=== PATIENT | female | born 1955 | race African-American/Black ===

== ENCOUNTER 2016-07-08 11:54 | Emergency (ER) | payer MEDICAID ==
[~2016-07-08] VITALS: Ht 175.3 cm; Wt 68.0 kg
[~2016-07-08 11:54] MED LIST: AMLO2.5T45 PO; ATOR40TA70 PO; PROT40 PO; TRAM50TA3 PO
[2016-07-08] MEDS ORDERED: METHYLPREDNISOLONE SOD SUCC 125 MG/2 ML VIAL IV STA (13:32)
[2016-07-08] MEDS ORDERED: IPRATROPIUM/ALBUTEROL 0.5-3(2.5)MG/3ML NEB HHN ONE (13:45)
[2016-07-08 13:53] LABS: BASOPHILS % 0.6 % (0.0-2.0); EOSINOPHILS % 0.8 % (0.0-5.0); HEMATOCRIT. 40.6 % (36.0-48.0); HEMOGLOBIN. 13.5 g/dL (12.0-16.0); LYMPHOCYTES % 20.6 % (20.0-50.0); MEAN CORPUSCULAR HEMOGLOBIN 30.4 pg (28.0-32.0); MEAN CORPUSCULAR HGB CONC 33.1 g/dL (31.0-37.0); MEAN CORPUSCULAR VOLUME 91.9 fL (81.0-99.0); MEAN PLATELET VOLUME 7.5 fl (7.4-10.4); MONOCYTES % 7.2 % (2.0-8.0); NEUTROPHILS % 70.8 % (40.0-76.0); PLATELET 221 x1000/uL (130-400); RED BLOOD CELL COUNT 4.42 mill/uL (4.2-5.4); RED CELL DISTRIBUTION WIDTH 14.8 % (11.6-14.6)
[2016-07-08 14:01] LABS: PARTIAL THROMBOPLASTIN TIME 25.2 sec (24.0-34.0); PROTHROMBIN TIME 10.5 sec
[2016-07-08 14:07] LABS: ALANINE AMINOTRANSFERASE 42 IU/L (13-61); ALBUMIN 3.8 g/dL (3.4-5.0); ANION GAP 11; CALCIUM 9.1 mg/dL (8.5-10.1); CARBON DIOXIDE 28 mEq/L (21-32); CHLORIDE 105 mEq/L (98-107); INDEX HEMOLYSI 1 (1-3); INDEX ICTERIC 1 (1-4); INDEX LIPEMIC 1 (1-3); NT PRO B-TYPE NATRIURETIC PEP 66 pg/mL (5-125); TROPONIN I < 0.02 ng/mL (0.00-0.04); UREA NITROGEN BLOOD 17 mg/dL (7-21); eGFR > 60 mL/min (>60)
[2016-07-08 15:54] VITALS: BP 130/75
== END 2016-07-08 16:59 | disposition home or self-care (01) ==
LOC: ER 13:28
DX: J20.9 Acute bronchitis, unspecified (principal); K21.9 Gastro-esophageal reflux disease without esophagitis; E78.00 Pure hypercholesterolemia, unspecified; I10 Essential (primary) hypertension; F17.210 Nicotine dependence, cigarettes, uncomplicated; Z79.1 Long term (current) use of non-steroidal anti-inflammatories (NSAID); Z79.899 Other long term (current) drug therapy
CPT/HCPCS: 36415; 71010; 80053; 83880; 84484; 85025; 85610; 85730; 93005; 94640; 96374; 99285; 99406; J2930; Z7610; J7620

== ENCOUNTER 2017-12-19 12:50 | Inpatient (IN) | payer MEDICAID ==
[~2017-12-19] VITALS: Ht 165.1 cm; Wt 75.3 kg
[2017-12-19] MEDS ORDERED: ASPIRIN 81MG TABLET PO ONE (14:30)
[2017-12-19] MEDS ORDERED: NITROGLYCERIN 0.4MG TABLET SL SL PRN (14:30)
[2017-12-19 15:36] LABS: BASOPHILS % 0.6 % (0.0-2.0); HEMATOCRIT. 41.2 % (36.0-48.0); HEMOGLOBIN. 13.5 g/dL (12.0-16.0); LYMPHOCYTES % 40.2 % (20.0-50.0); MEAN CORPUSCULAR VOLUME 91.2 fL (81.0-99.0); MEAN PLATELET VOLUME 8.8 fl (7.4-10.4); MONOCYTES % 10.1 % (2.0-8.0); NEUTROPHILS % 48.1 % (40.0-76.0); PLATELET 271 x1000/uL (130-400); RED BLOOD CELL COUNT 4.51 mill/uL (4.2-5.4); RED CELL DISTRIBUTION WIDTH 14.6 % (11.6-14.6)
[2017-12-19 15:41] LABS: CHLORIDE 106 mEq/L (98-107)
[2017-12-19 15:45] LABS: D-DIMER 0.43 mg/L FEU (<0.50); PARTIAL THROMBOPLASTIN TIME 27.8 sec (23.4-31.0); PROTHROMBIN TIME 10.2 sec (9.1-11.1)
[2017-12-19] MEDS ORDERED: MAGNESIUM/ALUMINUM HYDROXIDE/SIMETHICONE 30ML UDC PO PRN (18:30)
[2017-12-19] MEDS ORDERED: DOCUSATE SODIUM 100MG CAPSULE PO PRN (18:30)
[2017-12-19] MEDS ORDERED: CLONIDINE 0.1MG TABLET PO PRN (18:30)
[2017-12-19] MEDS ORDERED: IPRATROPIUM/ALBUTEROL 0.5-3(2.5)MG/3ML NEB INH PRN (18:30)
[2017-12-19] MEDS ORDERED: GUAIFENESIN 200MG/10ML SUGAR FREE UDC PO PRN (18:30)
[2017-12-19] MEDS ORDERED: ONDANSETRON HCL 4MG/2ML INJ IV PRN (18:30)
[2017-12-19] MEDS ORDERED: ACETAMINOPHEN 325MG TABLET PO PRN (18:30)
[2017-12-19] MEDS: HYDROCODONE/ACETAMINOPHEN 5/325MG TABLET PO PRN (20:16)
[2017-12-19 22:18] LABS: CHLORIDE 106 mEq/L (98-107)
[2017-12-19 22:27] LABS: CREATINE KINASE 85 IU/L (26-192)
[2017-12-19 22:29] LABS: CREATINE KINASE MB FRACTION < 1.0 ng/mL (0.5-3.6)
[2017-12-19 22:40] VITALS: BP 141/74
[2017-12-19 22:54] VITALS: BP 141/74
[2017-12-20 04:00] VITALS: BP 117/59
[2017-12-20 06:18] LABS: BASOPHILS % 0.5 % (0.0-2.0); EOSINOPHILS % 1.6 % (0.0-5.0); HEMATOCRIT. 38.8 % (36.0-48.0); HEMOGLOBIN. 12.7 g/dL (12.0-16.0); LYMPHOCYTES % 46.2 % (20.0-50.0); MEAN CORPUSCULAR VOLUME 91.7 fL (81.0-99.0); MEAN PLATELET VOLUME 8.7 fl (7.4-10.4); NEUTROPHILS % 43.7 % (40.0-76.0); PLATELET 275 x1000/uL (130-400); RED BLOOD CELL COUNT 4.23 mill/uL (4.2-5.4); RED CELL DISTRIBUTION WIDTH 14.4 % (11.6-14.6)
[2017-12-20 06:40] LABS: LDL CHOLESTEROL 72 mg/dL (5-100)
[2017-12-20 06:42] LABS: CREATINE KINASE 81 IU/L (26-192); HDL CHOLESTEROL 41 mg/dL (40-59)
[2017-12-20 06:44] LABS: CREATINE KINASE MB FRACTION < 1.0 ng/mL (0.5-3.6)
[2017-12-20 08:00] VITALS: BP 111/57
[2017-12-20] MEDS: ASPIRIN 81MG EC TABLET PO SCH (08:27)
[2017-12-20] MEDS: ENOXAPARIN 40MG/0.4ML SYR SUBCUT SCH (08:28)
[2017-12-20 12:00] VITALS: BP 110/66
[2017-12-20] MEDS ORDERED: IPRATROPIUM/ALBUTEROL 0.5-3(2.5)MG/3ML NEB HHN PRN (14:00)
[2017-12-20] MEDS: PANTOPRAZOLE 40MG DR TABLET PO SCH (15:34)
[2017-12-20] MEDS: AMLODIPINE 2.5MG TABLET PO SCH (15:35)
[2017-12-20] MEDS: NICOTINE 7MG PATCH TD SCH (15:39)
[2017-12-20 15:42] VITALS: BP 112/61
[2017-12-20 19:59] VITALS: BP 119/53
[2017-12-20] MEDS: ATORVASTATIN CALCIUM 40MG TABLET PO SCH (20:58)
[2017-12-20 22:35] LABS: *AMPHETAMINES SCREEN URINE NEGATIVE (NEGATIVE); *BARBITURATES SCREEN URINE NEGATIVE (NEGATIVE); *BENZODIAZEPINES SCREEN URINE NEGATIVE (NEGATIVE); *COCAINE SCREEN URINE PRESUMTIVE POSITIVE (NEGATIVE); METHADONE URINE SCREEN NEGATIVE (NEGATIVE); OPIATES URINE SCREEN NEGATIVE (NEGATIVE)
[2017-12-20 22:36] LABS: CANNABINOID URINE SCREEN NEGATIVE (NEGATIVE); PHENCYCLIDINE URINE SCREEN NEGATIVE (NEGATIVE)
[2017-12-20 23:52] VITALS: BP 141/71
[2017-12-21 04:00] VITALS: BP 108/56
[2017-12-21 06:24] LABS: BASOPHILS % 0.3 % (0.0-2.0); EOSINOPHILS % 1.3 % (0.0-5.0); HEMATOCRIT. 41.8 % (36.0-48.0); HEMOGLOBIN. 13.9 g/dL (12.0-16.0); LYMPHOCYTES % 46.8 % (20.0-50.0); MEAN CORPUSCULAR HEMOGLOBIN 30.5 pg (28.0-32.0); MEAN CORPUSCULAR VOLUME 91.4 fL (81.0-99.0); MEAN PLATELET VOLUME 8.5 fl (7.4-10.4); NEUTROPHILS % 43.6 % (40.0-76.0); PLATELET 294 x1000/uL (130-400); RED BLOOD CELL COUNT 4.57 mill/uL (4.2-5.4); RED CELL DISTRIBUTION WIDTH 14.5 % (11.6-14.6)
[2017-12-21] MEDS: PANTOPRAZOLE 40MG DR TABLET PO SCH (06:38)
[2017-12-21 06:41] LABS: CHLORIDE 105 mEq/L (98-107)
[2017-12-21 06:49] LABS: PHOSPHORUS 4.7 mg/dL (2.5-4.9)
[2017-12-21 08:00] VITALS: BP 104/62
[2017-12-21] MEDS: ASPIRIN 81MG EC TABLET PO SCH (08:23)
[2017-12-21] MEDS: ENOXAPARIN 40MG/0.4ML SYR SUBCUT SCH (08:24)
[2017-12-21] MEDS: NICOTINE 7MG PATCH TD SCH (08:26)
[2017-12-21] MEDS: AMLODIPINE 2.5MG TABLET PO SCH (08:26)
[2017-12-21 10:17] LABS: T4 FREE 0.8 ng/dL (0.76-1.46)
[2017-12-21 12:00] VITALS: BP 115/75
[2017-12-21 16:00] VITALS: BP 112/74
[2017-12-21 17:07] LABS: CREATINE KINASE 72 IU/L (26-192)
[2017-12-21 17:08] LABS: CREATINE KINASE MB FRACTION < 1.0 ng/mL (0.5-3.6)
[2017-12-21 20:00] VITALS: BP 111/66
[2017-12-21] MEDS: ATORVASTATIN CALCIUM 40MG TABLET PO SCH (20:23)
[2017-12-21] MEDS: HYDROCODONE/ACETAMINOPHEN 5/325MG TABLET PO PRN (20:24)
[2017-12-22] VITALS: BP 126/54
[2017-12-22 00:24] LABS: CREATINE KINASE 67 IU/L (26-192)
[2017-12-22 00:25] LABS: CREATINE KINASE MB FRACTION < 1.0 ng/mL (0.5-3.6)
[2017-12-22 04:00] VITALS: BP 108/61
[2017-12-22] MEDS: PANTOPRAZOLE 40MG DR TABLET PO SCH (06:25)
[2017-12-22 06:45] LABS: CREATINE KINASE 65 IU/L (26-192)
[2017-12-22 06:47] LABS: CREATINE KINASE MB FRACTION < 1.0 ng/mL (0.5-3.6)
[2017-12-22 08:00] VITALS: BP 115/55
[2017-12-22] MEDS: ENOXAPARIN 40MG/0.4ML SYR SUBCUT SCH (08:38)
[2017-12-22] MEDS: AMLODIPINE 2.5MG TABLET PO SCH (08:38)
[2017-12-22] MEDS: NICOTINE 7MG PATCH TD SCH (08:42)
[2017-12-22] MEDS ORDERED: ASPIRIN 81MG TABLET PO SCH (09:00)
[2017-12-22 12:00] VITALS: BP 103/60
== END 2017-12-22 14:40 | disposition left against medical advice (07) | DRG 203 ==
LOC: ER 12:50 → 6WST 17:16 → ENRESERV 21:09
PROVIDERS: ADMIT Internal Medicine; ATTEND Internal Medicine
DX: M94.0 Chondrocostal junction syndrome [Tietze] (principal); J84.10 Pulmonary fibrosis, unspecified; E78.5 Hyperlipidemia, unspecified; I10 Essential (primary) hypertension; K21.9 Gastro-esophageal reflux disease without esophagitis; E78.00 Pure hypercholesterolemia, unspecified; F17.200 Nicotine dependence, unspecified, uncomplicated; M79.89 Other specified soft tissue disorders; Z53.21 Procedure and treatment not carried out due to patient leaving prior to being seen by health care provider; Z71.6 Tobacco abuse counseling; Z79.899 Other long term (current) drug therapy
CPT/HCPCS: 36415; 71045; 80048; 80053; 80061; 80305; 82550; 82553; 83036; 83735; 83880; 84100; 84439; 84443; 84484; 85025; 85379; 85610; 85730; 93005; 93306; 93970; 99285; J1650; J7620

== ENCOUNTER 2018-04-11 10:19 | Emergency (ER) | payer MEDICAID ==
[~2018-04-11] VITALS: Ht 165.1 cm; Wt 73.0 kg
[2018-04-11] MEDS: KETOROLAC 60MG/2ML VIAL IM ONE ×2 (14:26→14:54)
[2018-04-11 14:54] VITALS: BP 133/69
== END 2018-04-11 14:56 | disposition home or self-care (01) ==
LOC: ER 10:32
DX: S13.4XXA Sprain of ligaments of cervical spine, initial encounter (principal); S80.01XA Contusion of right knee, initial encounter; S80.02XA Contusion of left knee, initial encounter; M54.9 Dorsalgia, unspecified; V49.49XA Driver injured in collision with other motor vehicles in traffic accident, initial encounter; Y93.89 Activity, other specified; Y92.410 Unspecified street and highway as the place of occurrence of the external cause; I10 Essential (primary) hypertension
CPT/HCPCS: 96372; 99283; J1885

== ENCOUNTER 2018-04-15 08:35 | Emergency (ER) | payer MEDICAID ==
[~2018-04-15] VITALS: Ht 165.1 cm; Wt 74.0 kg
[2018-04-15] MEDS ORDERED: IBUPROFEN 600MG TABLET PO STA (09:05)
[2018-04-15 10:47] LABS: CLARITY URINE CLOUDY (CLEAR); COLOR URINE YELLOW (YELLOW); KETONES URINE 2+ (NEGATIVE); LEUKOCYTE ESTERASE URINE NEGATIVE (NEGATIVE); NITRITE URINE NEGATIVE (NEGATIVE); OCCULT BLOOD URINE 2+ (NEGATIVE); PROTEIN URINE NEGATIVE (NEGATIVE); SPECIFIC GRAVITY URINE 1.028 (1.005-1.030); UROBILINOGEN URINE 0.2 E.U./dL (0.2-1.0)
[2018-04-15 11:39] LABS: BASOPHILS % 0.4 % (0.0-2.0); EOSINOPHILS % 1.1 % (0.0-5.0); HEMATOCRIT. 40.3 % (36.0-48.0); HEMOGLOBIN. 13.2 g/dL (12.0-16.0); LYMPHOCYTES % 16.1 % (20.0-50.0); MEAN CORPUSCULAR HEMOGLOBIN 29.6 pg (28.0-32.0); MEAN CORPUSCULAR VOLUME 90.7 fL (81.0-99.0); MEAN PLATELET VOLUME 8.2 fl (7.4-10.4); MONOCYTES % 9.4 % (2.0-8.0); PLATELET 246 x1000/uL (130-400); RED BLOOD CELL COUNT 4.44 mill/uL (4.2-5.4); RED CELL DISTRIBUTION WIDTH 14.4 % (11.6-14.6)
[2018-04-15 11:46] LABS: CHLORIDE 107 mEq/L (98-107)
[2018-04-15 11:48] LABS: INR 1.1
[2018-04-15 12:15] VITALS: BP 128/81
== END 2018-04-15 12:17 | disposition home or self-care (01) ==
LOC: ER 09:02
DX: R04.0 Epistaxis (principal); K52.9 Noninfective gastroenteritis and colitis, unspecified; F17.200 Nicotine dependence, unspecified, uncomplicated; K21.9 Gastro-esophageal reflux disease without esophagitis; E78.00 Pure hypercholesterolemia, unspecified; I10 Essential (primary) hypertension; Z98.890 Other specified postprocedural states
CPT/HCPCS: 36415; 74176; 99284; 99406

== ENCOUNTER 2018-04-16 01:57 | Emergency (ER) | payer MEDICAID ==
[~2018-04-16] VITALS: Ht 165.1 cm; Wt 74.0 kg
[2018-04-16 02:05] VITALS: BP 115/55
== END 2018-04-16 09:28 | disposition left against medical advice (07) ==
LOC: ER 01:57
DX: Z53.21 Procedure and treatment not carried out due to patient leaving prior to being seen by health care provider (principal)

== ENCOUNTER 2021-12-24 11:29 | Inpatient (IN) | payer MEDICARE, MEDICAID ==
[~2021-12-24] VITALS: Ht 167.6 cm; Wt 64.4 kg
[2021-12-24] MEDS ORDERED: MORPHINE SULFATE 4 MG/ML CPJ (NOT FOR IM USE) IV STA ×2 (13:23→18:20)
[2021-12-24] MEDS ORDERED: ONDANSETRON HCL 4MG/2ML INJ IV STA ×2 (13:23→18:20)
[2021-12-24] MEDS ORDERED: SODIUM CHLORIDE 0.9% 1,000 ML IV ONE (13:30)
[2021-12-24 14:00] LABS: BASOPHILS % 0.5 % (0.0-2.0); EOSINOPHILS % 1.7 % (0.0-5.0); HEMOGLOBIN. 13.6 g/dL (12.0-16.0); LYMPHOCYTES % 25.3 % (20.0-50.0); MEAN CORPUSCULAR HEMOGLOBIN 31.8 pg (28.0-32.0); MEAN CORPUSCULAR VOLUME 93.9 fL (81.0-99.0); MEAN PLATELET VOLUME 8.1 fl (7.4-10.4); MONOCYTES % 9.1 % (2.0-8.0); NEUTROPHILS % 63.4 % (40.0-76.0); PLATELET 288 x1000/uL (130-400); RED BLOOD CELL COUNT 4.26 mill/uL (4.2-5.4); RED CELL DISTRIBUTION WIDTH 13.9 % (11.6-14.6)
[2021-12-24] MEDS ORDERED: DIPHENHYDRAMINE 50MG/ML VIAL IV ONE (14:15)
[2021-12-24] MEDS ORDERED: ASPIRIN 81MG TABLET PO ONE (16:15)
[2021-12-24 16:41] LABS: CHLORIDE 108 mEq/L (98-107)
[2021-12-24] MEDS ORDERED: DIPHENHYDRAMINE 50MG/ML VIAL IV PRN (18:30)
[2021-12-24] MEDS ORDERED: IPRATROPIUM/ALBUTEROL 0.5-3(2.5)MG/3ML NEB HHN PRN (18:30)
[2021-12-24] MEDS ORDERED: ACETAMINOPHEN 325MG TABLET PO PRN (18:30)
[2021-12-24] MEDS ORDERED: ONDANSETRON HCL 4MG/2ML INJ IV PRN (18:30)
[2021-12-24] MEDS ORDERED: CLONIDINE 0.1MG TABLET PO PRN (18:30)
[2021-12-24] MEDS ORDERED: NALOXONE HCL 0.4MG/ML VIAL IV PRN (19:00)
[2021-12-24 19:01] LABS: PROTHROMBIN TIME 10.9 sec (9.6-11.0)
[2021-12-24] MEDS: MORPHINE SULFATE 2 MG/ML CPJ (NOT FOR IM USE) IV PRN (23:36)
[2021-12-24 23:37] VITALS: BP 135/84
[2021-12-25 04:00] VITALS: BP 135/76
[2021-12-25 07:58] VITALS: BP 129/75
[2021-12-25] MEDS: MORPHINE SULFATE 2 MG/ML CPJ (NOT FOR IM USE) IV PRN ×2 (08:03→18:05)
[2021-12-25 12:00] VITALS: BP 133/73
[2021-12-25 12:54] LABS: BASOPHILS % 0.3 % (0.0-2.0); EOSINOPHILS % 1.2 % (0.0-5.0); HEMATOCRIT. 41.7 % (36.0-48.0); LYMPHOCYTES % 22.6 % (20.0-50.0); MEAN CORPUSCULAR HEMOGLOBIN 31.5 pg (28.0-32.0); MEAN CORPUSCULAR VOLUME 93.5 fL (81.0-99.0); MEAN PLATELET VOLUME 8.8 fl (7.4-10.4); MONOCYTES % 9.6 % (2.0-8.0); NEUTROPHILS % 66.3 % (40.0-76.0); PLATELET 258 x1000/uL (130-400); RED BLOOD CELL COUNT 4.46 mill/uL (4.2-5.4); RED CELL DISTRIBUTION WIDTH 13.7 % (11.6-14.6)
[2021-12-25 13:15] LABS: CHLORIDE 104 mEq/L (98-107)
[2021-12-25] MEDS ORDERED: HYDROCODONE/ACETAMINOPHEN 5/325MG TABLET PO PRN (13:15)
[2021-12-25] MEDS: PANTOPRAZOLE 40MG DR TABLET PO SCH (13:58)
[2021-12-25] MEDS: NICOTINE 14MG PATCH TD SCH (13:59)
[2021-12-25] MEDS: LIDOCAINE 5% PATCH TOP SCH (13:59)
[2021-12-25 16:00] VITALS: BP 132/69
[2021-12-25 20:00] VITALS: BP 130/76
[2021-12-26] VITALS: BP 128/81
[2021-12-26 04:00] VITALS: BP 131/78
[2021-12-26 08:00] VITALS: BP 112/62
[2021-12-26] MEDS: MORPHINE SULFATE 2 MG/ML CPJ (NOT FOR IM USE) IV PRN ×2 (09:05→20:50)
[2021-12-26] MEDS: PANTOPRAZOLE 40MG DR TABLET PO SCH (09:06)
[2021-12-26] MEDS: NICOTINE 14MG PATCH TD SCH (09:06)
[2021-12-26] MEDS: LIDOCAINE 5% PATCH TOP SCH (09:06)
[2021-12-26 12:00] VITALS: BP 135/84
[2021-12-26 16:00] VITALS: BP 133/63
[2021-12-26 20:00] VITALS: BP 124/64
[2021-12-27] VITALS: BP 130/66
[2021-12-27 04:00] VITALS: BP 110/58
[2021-12-27 08:00] VITALS: BP 108/67
[2021-12-27] MEDS: NICOTINE 14MG PATCH TD SCH (08:38)
[2021-12-27] MEDS: LIDOCAINE 5% PATCH TOP SCH (08:41)
[2021-12-27] MEDS: PANTOPRAZOLE 40MG DR TABLET PO SCH (08:41)
[2021-12-27] MEDS: MORPHINE SULFATE 2 MG/ML CPJ (NOT FOR IM USE) IV PRN ×3 (08:42→22:30)
[2021-12-27 12:00] VITALS: BP 117/68
[2021-12-27] MEDS ORDERED: LIDO700A30 TOP (12:36)
[2021-12-27 16:00] VITALS: BP 130/67
[2021-12-27 20:00] VITALS: BP 112/74
[2021-12-28 04:00] VITALS: BP 119/69
[2021-12-28 08:26] VITALS: BP 126/47
[2021-12-28] MEDS: LIDOCAINE 5% PATCH TOP SCH (08:29)
[2021-12-28] MEDS: PANTOPRAZOLE 40MG DR TABLET PO SCH (08:29)
[2021-12-28] MEDS: NICOTINE 14MG PATCH TD SCH (08:29)
[2021-12-28 12:00] VITALS: BP 125/71
[2021-12-28 16:00] VITALS: BP 121/63
[2021-12-29] MEDS ORDERED: FAMOTIDINE 20MG TABLET PO SCH (09:00)
== END 2021-12-28 19:20 | disposition left against medical advice (07) | DRG 558 ==
LOC: ER 11:29 → 7WST 16:14 → EDBEDREQ 16:18 → EDBEDREQTM 16:18 → ENRESERV 21:56
PROVIDERS: ADMIT Internal Medicine; ATTEND Internal Medicine
DX: M75.32 Calcific tendinitis of left shoulder (principal); D25.9 Leiomyoma of uterus, unspecified; K21.9 Gastro-esophageal reflux disease without esophagitis; M48.02 Spinal stenosis, cervical region; I10 Essential (primary) hypertension; E78.00 Pure hypercholesterolemia, unspecified; E78.5 Hyperlipidemia, unspecified; Z87.891 Personal history of nicotine dependence; Z53.29 Procedure and treatment not carried out because of patient's decision for other reasons
CPT/HCPCS: 36415; 70551; 71045; 72141; 73030; 73221; 76830; 76856; 80053; 83880; 84484; 85025; 93005; 93306; 93970; 93971; 99285; J1200; J2270; J2405; J7030

== ENCOUNTER 2022-07-25 11:01 | Inpatient (IN) | payer MEDICARE, MEDICAID ==
[~2022-07-25] VITALS: Ht 162.6 cm; Wt 67.8 kg
[~2022-07-25 11:01] MED LIST changes: +LIDO700A30 TOP
[2022-07-25] MEDS ORDERED: ONDANSETRON HCL 4MG/2ML INJ IV STA (11:29)
[2022-07-25] MEDS ORDERED: MORPHINE SULFATE 4 MG/ML CPJ (NOT FOR IM USE) IV STA (11:29)
[2022-07-25] MEDS ORDERED: SODIUM CHLORIDE 0.9% 1,000 ML IV ONE (11:30)
[2022-07-25] MEDS ORDERED: MORPHINE SULFATE 4 MG/ML CPJ (NOT FOR IM USE) IV ONE (14:00)
[2022-07-25] MEDS ORDERED: CEFTRIAXONE 1GM PREMIX 50 ML IV ONE (14:00)
[2022-07-25 14:46] LABS: HEMATOCRIT. 40.4 % (36.0-48.0); HEMOGLOBIN. 13.2 g/dL (12.0-16.0); MEAN CORPUSCULAR HEMOGLOBIN 30.5 pg (28.0-32.0); MEAN CORPUSCULAR VOLUME 93.3 fL (81.0-99.0); MEAN PLATELET VOLUME 7.8 fl (7.4-10.4); PLATELET 291 x1000/uL (130-400); RED BLOOD CELL COUNT 4.33 mill/uL (4.2-5.4); RED CELL DISTRIBUTION WIDTH 14.6 % (11.6-14.6)
[2022-07-25 14:50] LABS: CHLORIDE 110 mEq/L (98-107)
[2022-07-25 15:24] LABS: CLARITY URINE TURBID (CLEAR); COLOR URINE YELLOW (YELLOW); KETONES URINE 1+ (NEGATIVE); LEUKOCYTE ESTERASE URINE 3+ (NEGATIVE); NITRITE URINE NEGATIVE (NEGATIVE); OCCULT BLOOD URINE 2+ (NEGATIVE); PH URINE 5.5 (4.5-8.0); PROTEIN URINE 1+ (NEGATIVE); SPECIFIC GRAVITY URINE 1.015 (1.005-1.030); UROBILINOGEN URINE 0.2 E.U./dL (0.2-1.0)
[2022-07-25 15:58] LABS: INR 1.1; PROTHROMBIN TIME 11.4 sec (9.6-11.0)
[2022-07-25 17:51] LABS: PLATELET ESTIMATE NORMAL
[2022-07-25 21:40] VITALS: BP 98/46
[2022-07-25 22:00] VITALS: BP 98/46
[2022-07-25 22:25] VITALS: BP 120/49
[2022-07-25] MEDS: MORPHINE SULFATE 2 MG/ML CPJ (NOT FOR IM USE) IV PRN (22:29)
[2022-07-25] MEDS ORDERED: ONDANSETRON HCL 4MG/2ML INJ IV PRN (22:45)
[2022-07-25] MEDS ORDERED: NALOXONE HCL 0.4MG/ML VIAL IV PRN (23:00)
[2022-07-25] MEDS ORDERED: OMEP40CA20 PO (23:11)
[2022-07-25] MEDS ORDERED: LEVOFLOXACIN 500MG PREMIX 100 ML IV NR (23:45)
[2022-07-26] VITALS: BP 102/42
[2022-07-26] MEDS: METRONIDAZOLE 500 MG PREMIX 100 ML IV SCH ×4 (00:18→22:55)
[2022-07-26] MEDS: DEXT 5%/0.45% NACL KCL 20MEQ/L 1,000 ML IV SCH ×2 (01:58→08:42)
[2022-07-26] MEDS: MORPHINE SULFATE 2 MG/ML CPJ (NOT FOR IM USE) IV PRN ×3 (02:28→17:57)
[2022-07-26 04:00] VITALS: BP 113/63
[2022-07-26 08:00] VITALS: BP 100/47
[2022-07-26] MEDS ORDERED: LEVOFLOXACIN 500MG PREMIX 100 ML IV SCH (10:45)
[2022-07-26] MEDS ORDERED: ACETAMINOPHEN 325MG TABLET PO PRN (10:45)
[2022-07-26] MEDS ORDERED: METRONIDAZOLE 500 MG PREMIX 100 ML IV SCH (10:45)
[2022-07-26] MEDS ORDERED: CLONIDINE 0.1MG TABLET PO PRN (10:45)
[2022-07-26] MEDS ORDERED: ONDANSETRON HCL 4MG/2ML INJ IV PRN (10:45)
[2022-07-26] MEDS: AMLODIPINE 2.5MG TABLET PO SCH (11:39)
[2022-07-26] MEDS: ENOXAPARIN 40MG/0.4ML SYR SUBCUT SCH (11:40)
[2022-07-26] MEDS: SODIUM CHLORIDE 0.9% 1,000 ML IV SCH (11:41)
[2022-07-26 12:00] VITALS: BP 99/46
[2022-07-26 16:00] VITALS: BP 124/51
[2022-07-26 16:25] LABS: HEMOGLOBIN. 12.7 g/dL (12.0-16.0); MEAN CORPUSCULAR VOLUME 92.9 fL (81.0-99.0); MEAN PLATELET VOLUME 9.2 fl (7.4-10.4); PLATELET 248 x1000/uL (130-400); RED BLOOD CELL COUNT 4.09 mill/uL (4.2-5.4); RED CELL DISTRIBUTION WIDTH 14.5 % (11.6-14.6)
[2022-07-26 16:37] LABS: CHLORIDE 105 mEq/L (98-107)
[2022-07-26 17:57] LABS: PLATELET ESTIMATE NORMAL
[2022-07-26] MEDS: PANTOPRAZOLE SODIUM 40 MG/VIAL IV SCH (17:58)
[2022-07-26 20:00] VITALS: BP 134/64
[2022-07-26] MEDS: LEVOFLOXACIN 250MG PREMIX 50 ML IV SCH (20:07)
[2022-07-27] VITALS: BP 121/66
[2022-07-27 04:00] VITALS: BP 135/66
[2022-07-27] MEDS: METRONIDAZOLE 500 MG PREMIX 100 ML IV SCH ×3 (06:15→22:00)
[2022-07-27 08:00] VITALS: BP 103/51
[2022-07-27 08:27] LABS: HEMATOCRIT. 38.7 % (36.0-48.0); HEMOGLOBIN. 12.7 g/dL (12.0-16.0); MEAN CORPUSCULAR HEMOGLOBIN 30.8 pg (28.0-32.0); MEAN PLATELET VOLUME 8.8 fl (7.4-10.4); PLATELET 256 x1000/uL (130-400); RED BLOOD CELL COUNT 4.11 mill/uL (4.2-5.4); RED CELL DISTRIBUTION WIDTH 14.4 % (11.6-14.6)
[2022-07-27 08:53] LABS: CHLORIDE 106 mEq/L (98-107)
[2022-07-27] MEDS: AMLODIPINE 2.5MG TABLET PO SCH (09:00)
[2022-07-27] MEDS: ATORVASTATIN CALCIUM 40MG TABLET PO SCH (09:00)
[2022-07-27] MEDS: PANTOPRAZOLE SODIUM 40 MG/VIAL IV SCH (09:00)
[2022-07-27] MEDS: ENOXAPARIN 40MG/0.4ML SYR SUBCUT SCH (09:01)
[2022-07-27] MEDS: SODIUM CHLORIDE 0.9% 1,000 ML IV SCH (09:02)
[2022-07-27] MEDS ORDERED: POTASSIUM CHLORIDE 20MEQ/PACKET PO NR (10:00)
[2022-07-27 10:58] LABS: PLATELET ESTIMATE NORMAL
[2022-07-27 12:00] VITALS: BP 113/55
[2022-07-27 16:00] VITALS: BP 124/61
[2022-07-27] MEDS: SODIUM CHL 0.9% + KCL 20MEQ/L 1,000 ML IV SCH (16:31)
[2022-07-27] MEDS: LEVOFLOXACIN 250MG PREMIX 50 ML IV SCH (18:19)
[2022-07-27] MEDS: MORPHINE SULFATE 2 MG/ML CPJ (NOT FOR IM USE) IV PRN ×2 (18:19→22:36)
[2022-07-27 20:00] VITALS: BP 119/58
[2022-07-28] VITALS (17 sets, daily range): BP systolic 104–135; BP diastolic 52–79
[2022-07-28] MEDS: SODIUM CHL 0.9% + KCL 20MEQ/L 1,000 ML IV SCH ×3 (03:30→23:40)
[2022-07-28] MEDS: MORPHINE SULFATE 2 MG/ML CPJ (NOT FOR IM USE) IV PRN ×2 (05:01→17:53)
[2022-07-28] MEDS: METRONIDAZOLE 500 MG PREMIX 100 ML IV SCH ×2 (05:02→14:30)
[2022-07-28] MEDS ORDERED: SODIUM BICARBONATE 4% (2.4MEQ) 5ML VIAL IV ONE (07:41)
[2022-07-28] MEDS ORDERED: LIDOCAINE HCL 1% 10 MG/ML 10ML VIAL ONE ×2 (07:41→07:42)
[2022-07-28] MEDS ORDERED: FENTANYL CITRATE/PF 50MCG/ML 2ML VIAL IV NR (07:41)
[2022-07-28] MEDS ORDERED: FENTANYL CITRATE/PF 50MCG/ML 2ML VIAL ONE (07:41)
[2022-07-28 07:42] LABS: HEMOGLOBIN. 11.6 g/dL (12.0-16.0); MEAN CORPUSCULAR HEMOGLOBIN 30.7 pg (28.0-32.0); MEAN CORPUSCULAR VOLUME 95.1 fL (81.0-99.0); MEAN PLATELET VOLUME 8.2 fl (7.4-10.4); PLATELET 270 x1000/uL (130-400); RED BLOOD CELL COUNT 3.78 mill/uL (4.2-5.4); RED CELL DISTRIBUTION WIDTH 14.6 % (11.6-14.6)
[2022-07-28 07:50] LABS: INR 1.2; PARTIAL THROMBOPLASTIN TIME 30.8 sec (23.4-31.0); PROTHROMBIN TIME 12.3 sec (9.6-11.0)
[2022-07-28 08:01] LABS: CHLORIDE 109 mEq/L (98-107)
[2022-07-28] MEDS: ATORVASTATIN CALCIUM 40MG TABLET PO SCH (10:32)
[2022-07-28] MEDS: AMLODIPINE 2.5MG TABLET PO SCH (10:34)
[2022-07-28] MEDS: PANTOPRAZOLE SODIUM 40 MG/VIAL IV SCH (10:35)
[2022-07-28] MEDS ORDERED: BISACODYL 5MG TABLET PO NR (13:00)
[2022-07-28 16:59] LABS: PLATELET ESTIMATE NORMAL
[2022-07-28] MEDS: LEVOFLOXACIN 250MG PREMIX 50 ML IV SCH (17:44)
[2022-07-28] MEDS ORDERED: DOCUSATE SODIUM 250MG CAPSULE PO SCH (18:00)
[2022-07-29] VITALS: BP 155/82
[2022-07-29] MEDS: MORPHINE SULFATE 2 MG/ML CPJ (NOT FOR IM USE) IV PRN ×4 (00:45→21:54)
[2022-07-29] MEDS: METRONIDAZOLE 500 MG PREMIX 100 ML IV SCH ×4 (00:53→23:55)
[2022-07-29 04:00] VITALS: BP 110/56
[2022-07-29 08:00] VITALS: BP 105/55
[2022-07-29] MEDS: AMLODIPINE 2.5MG TABLET PO SCH (08:24)
[2022-07-29] MEDS: PANTOPRAZOLE SODIUM 40 MG/VIAL IV SCH (08:30)
[2022-07-29] MEDS: ATORVASTATIN CALCIUM 40MG TABLET PO SCH (08:31)
[2022-07-29] MEDS: SODIUM CHL 0.9% + KCL 20MEQ/L 1,000 ML IV SCH ×3 (08:32→21:54)
[2022-07-29 12:00] VITALS: BP 103/59
[2022-07-29 12:16] LABS: CHLORIDE 105 mEq/L (98-107)
[2022-07-29 12:19] LABS: BASOPHILS % 0.2 % (0.0-2.0); EOSINOPHILS % 0.3 % (0.0-5.0); HEMATOCRIT. 36.5 % (36.0-48.0); LYMPHOCYTES % 9.1 % (20.0-50.0); MEAN CORPUSCULAR VOLUME 91.5 fL (81.0-99.0); MEAN PLATELET VOLUME 8.3 fl (7.4-10.4); NEUTROPHILS % 83.4 % (40.0-76.0); PLATELET 313 x1000/uL (130-400); RED BLOOD CELL COUNT 3.99 mill/uL (4.2-5.4); RED CELL DISTRIBUTION WIDTH 14.7 % (11.6-14.6)
[2022-07-29] MEDS ORDERED: POTASSIUM CHLORIDE 20MEQ TABLET SR PO NR ×3 (13:45→19:30)
[2022-07-29 16:00] VITALS: BP 119/77
[2022-07-29] MEDS: DOCUSATE SODIUM 250MG CAPSULE PO SCH (16:41)
[2022-07-29] MEDS: LEVOFLOXACIN 250MG PREMIX 50 ML IV SCH (18:13)
[2022-07-29 20:00] VITALS: BP 113/54
[2022-07-29] MEDS: SENNOSIDES/DOCUSATE SOD 8.6/50MG TABLET PO SCH (21:53)
[2022-07-30 05:11] VITALS: BP 127/49
[2022-07-30] MEDS: MORPHINE SULFATE 2 MG/ML CPJ (NOT FOR IM USE) IV PRN ×2 (05:15→10:16)
[2022-07-30] MEDS: METRONIDAZOLE 500 MG PREMIX 100 ML IV SCH ×3 (05:15→21:01)
[2022-07-30 07:30] LABS: BASOPHILS % 0.5 % (0.0-2.0); EOSINOPHILS % 0.4 % (0.0-5.0); HEMATOCRIT. 36.5 % (36.0-48.0); HEMOGLOBIN. 12.1 g/dL (12.0-16.0); LYMPHOCYTES % 9.8 % (20.0-50.0); MEAN CORPUSCULAR HEMOGLOBIN 30.5 pg (28.0-32.0); MEAN CORPUSCULAR VOLUME 92.6 fL (81.0-99.0); MEAN PLATELET VOLUME 7.8 fl (7.4-10.4); MONOCYTES % 10.7 % (2.0-8.0); NEUTROPHILS % 78.6 % (40.0-76.0); PLATELET 312 x1000/uL (130-400); RED BLOOD CELL COUNT 3.95 mill/uL (4.2-5.4); RED CELL DISTRIBUTION WIDTH 14.6 % (11.6-14.6)
[2022-07-30 07:50] LABS: CHLORIDE 105 mEq/L (98-107)
[2022-07-30 08:00] VITALS: BP 117/59
[2022-07-30] MEDS: PANTOPRAZOLE SODIUM 40 MG/VIAL IV SCH (09:22)
[2022-07-30] MEDS: ATORVASTATIN CALCIUM 40MG TABLET PO SCH (09:22)
[2022-07-30] MEDS: AMLODIPINE 2.5MG TABLET PO SCH (09:22)
[2022-07-30] MEDS: DOCUSATE SODIUM 250MG CAPSULE PO SCH ×2 (09:23→16:35)
[2022-07-30] MEDS ORDERED: DIATR MEGLU/DIATRIZOATE SOLN 30ML PO SCH (11:00)
[2022-07-30 12:00] VITALS: BP 123/70
[2022-07-30 16:00] VITALS: BP 102/52
[2022-07-30] MEDS: SODIUM CHL 0.9% + KCL 20MEQ/L 1,000 ML IV SCH (16:41)
[2022-07-30] MEDS: LEVOFLOXACIN 250MG PREMIX 50 ML IV SCH (18:34)
[2022-07-30 20:00] VITALS: BP 137/76
[2022-07-30] MEDS: SENNOSIDES/DOCUSATE SOD 8.6/50MG TABLET PO SCH (21:00)
[2022-07-30] MEDS: HYDROCODONE/ACETAMINOPHEN 5/325MG TABLET PO PRN (21:01)
[2022-07-31] VITALS: BP 96/44
[2022-07-31] MEDS: SODIUM CHL 0.9% + KCL 20MEQ/L 1,000 ML IV SCH ×2 (02:10→17:52)
[2022-07-31 04:00] VITALS: BP 106/49
[2022-07-31] MEDS: HYDROCODONE/ACETAMINOPHEN 5/325MG TABLET PO PRN ×4 (04:11→22:09)
[2022-07-31] MEDS: METRONIDAZOLE 500 MG PREMIX 100 ML IV SCH ×3 (05:17→21:59)
[2022-07-31 06:42] LABS: HEMOGLOBIN. 12.2 g/dL (12.0-16.0); MEAN CORPUSCULAR HEMOGLOBIN 30.3 pg (28.0-32.0); MEAN CORPUSCULAR VOLUME 91.7 fL (81.0-99.0); MEAN PLATELET VOLUME 8.3 fl (7.4-10.4); PLATELET 378 x1000/uL (130-400); RED BLOOD CELL COUNT 4.04 mill/uL (4.2-5.4); RED CELL DISTRIBUTION WIDTH 14.7 % (11.6-14.6)
[2022-07-31 07:04] LABS: CHLORIDE 105 mEq/L (98-107)
[2022-07-31 08:00] VITALS: BP 129/61
[2022-07-31] MEDS: PANTOPRAZOLE SODIUM 40 MG/VIAL IV SCH (08:57)
[2022-07-31] MEDS: DOCUSATE SODIUM 250MG CAPSULE PO SCH ×3 (08:57→17:52)
[2022-07-31] MEDS: ATORVASTATIN CALCIUM 40MG TABLET PO SCH (08:57)
[2022-07-31] MEDS: AMLODIPINE 2.5MG TABLET PO SCH (08:57)
[2022-07-31 09:34] LABS: PLATELET ESTIMATE NORMAL
[2022-07-31] MEDS ORDERED: POTASSIUM CHLORIDE 20MEQ TABLET SR PO NR (11:45)
[2022-07-31 12:00] VITALS: BP 105/60
[2022-07-31 16:00] VITALS: BP 122/51
[2022-07-31] MEDS: LEVOFLOXACIN 250MG PREMIX 50 ML IV SCH (17:52)
[2022-07-31 20:00] VITALS: BP 124/68
[2022-07-31] MEDS: SENNOSIDES/DOCUSATE SOD 8.6/50MG TABLET PO SCH (21:58)
[2022-08-01] VITALS: BP_SYST 111; BP_SYST 116; BP_DIAS 50; BP_DIAS 57
[2022-08-01 04:00] VITALS: BP 116/50
[2022-08-01] MEDS: METRONIDAZOLE 500 MG PREMIX 100 ML IV SCH ×2 (05:59→16:55)
[2022-08-01] MEDS: HYDROCODONE/ACETAMINOPHEN 5/325MG TABLET PO PRN (06:10)
[2022-08-01 08:00] VITALS: BP 113/58
[2022-08-01 08:30] LABS: BASOPHILS % 0.2 % (0.0-2.0); CHLORIDE 107 mEq/L (98-107); EOSINOPHILS % 0.6 % (0.0-5.0); HEMATOCRIT. 37.4 % (36.0-48.0); HEMOGLOBIN. 12.2 g/dL (12.0-16.0); LYMPHOCYTES % 13.5 % (20.0-50.0); MEAN PLATELET VOLUME 7.7 fl (7.4-10.4); MONOCYTES % 13.9 % (2.0-8.0); NEUTROPHILS % 71.8 % (40.0-76.0); PLATELET 439 x1000/uL (130-400); RED BLOOD CELL COUNT 4.06 mill/uL (4.2-5.4); RED CELL DISTRIBUTION WIDTH 14.5 % (11.6-14.6)
[2022-08-01] MEDS: PANTOPRAZOLE SODIUM 40 MG/VIAL IV SCH (09:27)
[2022-08-01] MEDS: ATORVASTATIN CALCIUM 40MG TABLET PO SCH (09:28)
[2022-08-01] MEDS: AMLODIPINE 2.5MG TABLET PO SCH (09:29)
[2022-08-01 12:00] VITALS: BP 112/71
[2022-08-01 16:00] VITALS: BP 140/71
[2022-08-01] MEDS ORDERED: DOCU-138 MT (16:00)
[2022-08-01] MEDS ORDERED: METR-167 MT (16:00)
[2022-08-01] MEDS ORDERED: LEVO-65 MT (16:00)
[2022-08-01] MEDS ORDERED: HYDR-4009 PO (16:00)
[2022-08-01] MEDS ORDERED: MORPHINE SULFATE 2 MG/ML CPJ (NOT FOR IM USE) IV PRN (16:45)
[2022-08-01] MEDS: SODIUM CHL 0.9% + KCL 20MEQ/L 1,000 ML IV SCH (16:54)
[2022-08-01] MEDS: DOCUSATE SODIUM 250MG CAPSULE PO SCH (16:55)
[2022-08-01 18:26] VITALS: BP 113/58
== END 2022-08-01 19:39 | disposition home or self-care (01) | DRG 872 ==
LOC: ER 11:01 → 8WST 14:00 → 6WST 07-26 16:46
PROVIDERS: ADMIT Internal Medicine; ATTEND Internal Medicine
PROC: 0D9N3ZZ Drainage of Sigmoid Colon, Percutaneous Approach (ICD-10-PCS; principal; 2022-07-28)
DX: A41.9 Sepsis, unspecified organism (principal); K57.20 Diverticulitis of large intestine with perforation and abscess without bleeding; N39.0 Urinary tract infection, site not specified; I10 Essential (primary) hypertension; F14.10 Cocaine abuse, uncomplicated; K52.9 Noninfective gastroenteritis and colitis, unspecified; F17.210 Nicotine dependence, cigarettes, uncomplicated; E87.6 Hypokalemia; Z20.822 Contact with and (suspected) exposure to COVID-19; E78.00 Pure hypercholesterolemia, unspecified; D25.9 Leiomyoma of uterus, unspecified; K21.9 Gastro-esophageal reflux disease without esophagitis; B96.20 Unspecified Escherichia coli [E. coli] as the cause of diseases classified elsewhere
CPT/HCPCS: 36415; 74176; 77012; 80048; 80053; 81003; 83605; 84145; 85025; 87077; 87186; 87426; 93970; 99152; 99153; 99285; C1729; C1769; C1893; C9113; J0696; J1650; J1956; J2270; J2405; J3010; J3480; J3490; J7030; L8514; Q9963; G0500

== ENCOUNTER → 2022-08-19 | Outpatient (CLI) | payer MEDICARE, MEDICAID ==
[~2022-08-19] MED LIST changes: +BARIUM SULFATE 450ML ORAL SUSP ONE; +DOCU-138 MT; +HYDR-4009 PO; +IOHEXOL-300 100 ML BOTTLE ONE; +LEVO-65 MT; +METR-167 MT; +OMEP40CA20 PO
== END | disposition home or self-care (01) ==
LOC: CT 10:16
PROVIDERS: ATTEND Specialist
DX: K76.89 Other specified diseases of liver (principal); D25.9 Leiomyoma of uterus, unspecified; K57.20 Diverticulitis of large intestine with perforation and abscess without bleeding; M16.0 Bilateral primary osteoarthritis of hip
CPT/HCPCS: 74177; Q9967